=== PATIENT | female | born 1950 | race Caucasian/White ===

== ENCOUNTER 2021-09-30 11:13 | Emergency (ER) | payer MEDICARE, OTHER, SELFPAY ==
[2021-09-30 11:23] VITALS: BP 138/71; PULSE 59; RESP 16; TEMP 36.2; O2SAT 96
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
[2021-09-30 12:54] VITALS: BP 124/70; PULSE 54; RESP 18; TEMP 36.1; O2SAT 98
== END 2021-09-30 12:58 | disposition home or self-care (01) ==
PROVIDERS: Emergency Provider Physician Assistant
DX: S80.12XA Contusion of left lower leg, initial encounter (principal); S01.81XA Laceration without foreign body of other part of head, initial encounter; V89.2XXA Person injured in unspecified motor-vehicle accident, traffic, initial encounter; Z48.02 Encounter for removal of sutures
CPT/HCPCS: 99283; 73590

== ENCOUNTER 2021-12-09 16:09 | Emergency (ER) | payer MEDICARE, OTHER, SELFPAY ==
[2021-12-09] VITALS (11 sets, daily range): BP systolic 123–136; BP diastolic 57–73; PULSE 62–72; RESP 14–24; TEMP 36.5–36.8; O2SAT 92–98
--- NOTE | 2021-12-09 16:16 | ED.GENADUL_ITS ---
Discharge Plan Disposition Patient Disposition: HOME Condition: Stable Discharge Details Clinical Impression: Diverticulitis, Hypokalemia Primary Care Provider: Jeannie,Local ED Provider: Kian Barnes Home Meds and New Rx's Prescriptions: New ciprofloxacin HCl [Cipro] 500 mg tablet 500 mg PO BID Qty: 20 0RF metronidazole 500 mg tablet 500 mg PO QID 10 Days Qty: 40 0RF potassium chloride 20 mEq tablet,ER particles/crystals 20 meq PO DAILY Qty: 7 0RF Continued venlafaxine 150 mg Capsule,Extended Release 24hr 150 mg PO DAILY levothyroxine 125 mcg Tablet 125 mcg PO DAILY triamterene-hydrochlorothiazid 37.5-25 mg Tablet 1 tab PO DAILY rosuvastatin 20 mg Tablet 20 mg PO DAILY lorazepam [Ativan] 0.5 mg Tablet 0.5 mg PO BID PRN gabapentin 100 mg Capsule 100 mg PO TID PRN PRN naproxen 250 mg Tablet 250 mg PO BID PRN Label Comments: 250-500mg depending on how she feels CJ 12/09/21 acetaminophen 500 mg Tablet 1,000 mg PO Q6H PRN ibuprofen 200 mg Tablet 400 mg PO Q6H PRN cyanocobalamin (vitamin B-12) [Vitamin B-12] 500 mcg Tablet 500 mcg PO DAILY vitamin E 268 mg (400 unit) Capsule 268 mg PO DAILY biotin 2,500 mcg Capsule 5,000 mcg PO DAILY Discharge Instructions Instructions: Diverticulitis (ED), Hypokalemia (ED) Additional Instructions: Cipro, Flagyl, potassium as directed. Plenty of fluids to avoid dehydration. You may use [id number] medications such as Imodium for symptomatic control. We also discussed live culture yogurt and probiotics. Please watch for new or worsening symptoms and return to the ER for any concerns. Lastly, please reach out to your primary care provider tomorrow to discuss your ER visit, symptoms, need for outpatient reevaluation. You will need to have your potassium rechecked to be sure you do not need to be on long-term supplementation Medical Decision Making 71-year-old female who is otherwise healthy presents with abdominal pain and diarrhea that began about 5 days ago, worse in the left lower quadrant. She reports mild nausea with one episode of vomiting today. No fever, black tarry stools or bright red blood in her stools. Clinically she appears well, nontoxic, examination most consistent with diverticulitis. Plan is to obtain IV access, give IV fluid, obtain routine screening laboratory values and a CT of her abdomen pelvis with IV contrast. Laboratory values reveal a potassium of 2.5, labs otherwise unremarkable. Plan to obtain EKG and provide both oral and IV potassium supplementation Awaiting CT imaging CT imaging reveals proximal sigmoid diverticulitis, no abscess, perforation or bowel obstruction Discussed CT findings and laboratory work-up with patient. Patient feels well and is requesting discharge. We will give first dose of Cipro and Flagyl now. We also discussed her potassium, will provide short-term supplementation and we discussed the importance of outpatient follow-up through her PCP regarding her diverticulitis and need for potassium recheck as she may require long-term supplementation. Standard discharge and return precautions were provided. Patient understands, is agreeable to this plan, and has no additional questions or concerns upon discharge. This documentation was generated using [employer] system, please disregard any oddities of phrase or misspellings. Medical Records Medical records reviewed: Yes I reviewed the patient's medical records. Imaging Data Radiologic Study: Attestation: I personally reviewed and interpreted this imaging study as follows: Imaging: CT Scan Radiologist's impression: PROCEDURE INFORMATION: Exam: CT Abdomen And Pelvis With Contrast Exam date and time: 12/09/2021 5:38 PM Age: 71 years old Clinical indication: Abdominal pain; Localized; Left lower quadrant (llq); Patient HX: Llq pain TECHNIQUE: Imaging protocol: Computed tomography of the abdomen and pelvis with contrast. COMPARISON: No relevant prior studies available. FINDINGS: Lungs: Lung bases are clear. Pleural spaces: No pleural effusion. Heart: Normal heart size. No pericardial effusion. No coronary artery atherosclerotic calcium visible period Liver: Diffuse mild fatty liver change. Gallbladder and bile ducts: Previous cholecystectomy. Nonspecific biliary dilatation. Mild intrahepatic biliary dilatation. Common hepatic duct is significantly dilated at 1.7 cm period distal common bile duct at the pancreatic head is 12 mm. No obstructing focus. No calculus. Recommend correlation with bilirubin. Pancreas: Mild to moderate pancreatic atrophy. No acute inflammation. Pancreatic duct measuring approximately 3-4 mm. Spleen: The spleen is normal in size, contour and attenuation. Adrenal glands: The adrenal glands are normal in size and contour bilaterally. Kidneys and ureters: The kidneys bilaterally are unremarkable. Normal attenutation. No hydronephrosis. No calculi. Stomach and bowel: Gastric morphology is unremarkable. No edema. No gastric outlet obstruction. Small bowel loops are normal in course and caliber. There is no mucosal edema or bowel wall thickening. No obstructive features. Large bowel is remarkable for proximal sigmoid inflammation and a focally inflamed diverticulum. See series 4, image 66. This is consistent with [id number] proximal sigmoid diverticulitis. No evidence of perforation. No free fluid. No free air. No abscess. Appendix: No evidence of appendicitis. Intraperitoneal space: No free fluid or free air Vasculature: Unremarkable. No abdominal aortic aneurysm. Lymph nodes: Unremarkable. No enlarged lymph nodes. Urinary bladder: Unremarkable as visualized. Reproductive: Uterine atrophy and degenerative uterine fibroids are suggested with calcified lesions in the uterine fundus. No adnexal pathology evident. Bilateral fallopian tube occlusion clips are noted. Bones/joints: Degenerative lumbar spine disease. No acute skeletal pathology. Soft tissues: Unremarkable. IMPRESSION: 1. Proximal sigmoid diverticulitis. No evidence of perforation. No abscess. No mechanical bowel obstruction. 2. Previous cholecystectomy with biliary dilatation noted. No acute obstructing focus. Recommend clinical correlation with serum bilirubin. This could be a post cholecystectomy reservoir effect. 3. Mild fatty liver change. 4. Degenerative lumbar spine disease. 5. Mild to moderate pancreatic atrophy. 6. Uterine atrophy and calcified degenerative uterine fibroids. Thank you for allowing us to participate in the care of your patient. Lab Data Lab results reviewed: Yes I reviewed the patient's lab results. Labs: Laboratory Tests Range/Units 12/09/21 12/09/21 12/09/21 17:05 17:05 17:35 WBC (4.4-10.8) 10^3/uL 6.64 RBC (3.93-5.22) 10^6/uL 4.37 Hgb (11.2-15.7) g/dL 13.7 Hct (36.0-46.0) % 40.2 MCV (80-95) fL 92 MCH (27.0-33.0) pg 31.4 MCHC (32.0-36.0) % 34.1 RDW (11.7-14.6) % 10.9 L Plt Count (130-400) 10^3/uL 241 MPV (8.0-11.0) fL 9.0 Immature Gran % 0.3 Neutrophils % 66.4 Lymphocytes % 20.5 Monocytes % 11.3 Eosinophils % 1.2 Basophils % 0.3 Nucleated RBC % (0.0-0.3) % 0.0 Absolute Neutrophils (1.2-6.7) 10^3/uL 4.41 Absolute Lymphocytes (1.2-3.4) 10^3/uL 1.36 Absolute Monocytes (0.1-0.8) 10^3/uL 0.75 Absolute Eosinophils (0.0-0.7) 10^3/uL 0.08 Absolute Basophils (0.0-0.2) 10^3/uL 0.02 Sodium (136-145) mmol/L 137 Potassium (3.5-5.1) mmol/L 2.5 L* Chloride (98-107) mmol/L 99 Carbon Dioxide (21.0-32.0) mmol/L 30.7 Anion Gap (3-11) mmol/L 7.3 BUN (7-18) mg/dL 9 Creatinine (0.55-1.02) mg/dL 0.9 Est GFR (CKD-EPI 2020) (mL/min/1.73m2) 69.20 Glucose (74-106) mg/dL 88 Calcium (8.5-10.1) mg/dL 9.4 Total Bilirubin (0.2-1.0) mg/dL 0.5 AST (15-37) U/L 23 ALT (14-59) U/L 30 Alkaline Phosphatase (46-116) U/L 101 Total Protein (6.4-8.2) g/dL 7.4 Albumin (3.4-5.0) g/dL 3.6 Lipase (73-393) U/L 45 Urine Color (Yellow) Yellow Urine Clarity (Clear) Clear Urine pH (5-8) 6.0 Ur Specific [place] (1.005-1.025) 1.025 Urine Protein (Negative) mg/dL Trace H Urine Ketones (Negative) mg/dL Trace H Urine Blood (Negative) Small H Urine Nitrite (Negative) Negative Urine Bilirubin (Negative) Small H Urine Urobilinogen (Up TO 0.2) EU/dL 0.2 Ur Leukocyte Esterase (Negative) Negative Urine RBC (0-2) HPF 3-5 H Urine WBC (0-5) HPF Negative Ur Epithelial Cells (Negative) HPF Few Urine Crystals (Negative) HPF Negative Urine Bacteria (Negative) HPF Negative Urine Casts (Negative) LPF 0-2 Fine Granular Urine Mucus (Negative) Trace Ur Culture Indicated? No Urine Glucose (Negative) mg/dL Negative Stl C.difficile Tox PCR (Negative) Range/Units 12/09/21 17:35 WBC (4.4-10.8) 10^3/uL RBC (3.93-5.22) 10^6/uL Hgb (11.2-15.7) g/dL Hct (36.0-46.0) % MCV (80-95) fL MCH (27.0-33.0) pg MCHC (32.0-36.0) % RDW (11.7-14.6) % Plt Count (130-400) 10^3/uL MPV (8.0-11.0) fL Immature Gran % Neutrophils % Lymphocytes % Monocytes % Eosinophils % Basophils % Nucleated RBC % (0.0-0.3) % Absolute Neutrophils (1.2-6.7) 10^3/uL Absolute Lymphocytes (1.2-3.4) 10^3/uL Absolute Monocytes (0.1-0.8) 10^3/uL Absolute Eosinophils (0.0-0.7) 10^3/uL Absolute Basophils (0.0-0.2) 10^3/uL Sodium (136-145) mmol/L Potassium (3.5-5.1) mmol/L Chloride (98-107) mmol/L Carbon Dioxide (21.0-32.0) mmol/L Anion Gap (3-11) mmol/L BUN (7-18) mg/dL Creatinine (0.55-1.02) mg/dL Est GFR (CKD-EPI 2020) (mL/min/1.73m2) Glucose (74-106) mg/dL Calcium (8.5-10.1) mg/dL Total Bilirubin (0.2-1.0) mg/dL AST (15-37) U/L ALT (14-59) U/L Alkaline Phosphatase (46-116) U/L Total Protein (6.4-8.2) g/dL Albumin (3.4-5.0) g/dL Lipase (73-393) U/L Urine Color (Yellow) Urine Clarity (Clear) Urine pH (5-8) Ur Specific [place] (1.005-1.025) Urine Protein (Negative) mg/dL Urine Ketones (Negative) mg/dL Urine Blood (Negative) Urine Nitrite (Negative) Urine Bilirubin (Negative) Urine Urobilinogen (Up TO 0.2) EU/dL Ur Leukocyte Esterase (Negative) Urine RBC (0-2) HPF Urine WBC (0-5) HPF Ur Epithelial Cells (Negative) HPF Urine Crystals (Negative) HPF Urine Bacteria (Negative) HPF Urine Casts (Negative) LPF Urine Mucus (Negative) Ur Culture Indicated? Urine Glucose (Negative) mg/dL Stl C.difficile Tox PCR (Negative) Negative ECG Data Attestation: I personally reviewed and interpreted this ECG (s) as follows: Interpretation: Sinus rhythm, ventricular rate of 62. Nonspecific intraventricular conduction delay, no STEMI HPI General Mode of arrival: ambulatory . Date/Time Provider Initiated Documentation: 12/09/21 16:16 . Limitations to Documentation: no limitations . Information obtained by: patient . History of Present Illness 71 year old F presents to the emergency department with the chief complaint of Abdominal pain, diarrhea, described as moderate, with intensity rated at 4. Quality is described as aching, and is localized to the abdomen and left. Patient reports no radiation. Patient started experiencing this day(s) (5) and it has been constant. No relieving factors improve symptom(s), No exacerbating factors reported . Patient notes nausea/vomiting (Vomiting x1). Patient did receive the following treatments prior to arrival, none Related Data Home Medications Medication Instructions Recorded Confirmed levothyroxine 125 mcg tablet 125 mcg PO DAILY 09/30/21 12/09/21 lorazepam 0.5 mg tablet (Ativan) 0.5 mg PO BID PRN 09/30/21 12/09/21 rosuvastatin 20 mg tablet 20 mg PO DAILY 09/30/21 12/09/21 triamterene 37.5 1 tab PO DAILY 09/30/21 12/09/21 mg-hydrochlorothiazide 25 mg tablet venlafaxine 150 mg 150 mg PO DAILY 09/30/21 12/09/21 capsule,extended release 24 hr acetaminophen 500 mg tablet 1,000 mg PO Q6H PRN 12/09/21 12/09/21 biotin 2,500 mcg capsule 5,000 mcg PO DAILY 12/09/21 12/09/21 ciprofloxacin HCl 500 mg tablet 500 mg PO BID #20 tabs 12/09/21 (Cipro) cyanocobalamin (vitamin B-12) 500 500 mcg PO DAILY 12/09/21 12/09/21 mcg tablet (Vitamin B-12) gabapentin 100 mg capsule 100 mg PO TID PRN PRN 12/09/21 12/09/21 ibuprofen 200 mg tablet 400 mg PO Q6H PRN 12/09/21 12/09/21 metronidazole 500 mg tablet 500 mg PO QID 10 days #40 tabs 12/09/21 naproxen 250 mg tablet 250 mg PO BID PRN 12/09/21 12/09/21 potassium chloride 20 mEq 20 meq PO DAILY #7 tabs 12/09/21 tablet,extended release(part/cryst) vitamin E 268 mg (400 unit) capsule 268 mg PO DAILY 12/09/21 12/09/21 Previous Rx's Medication Instructions Recorded ciprofloxacin HCl 500 mg tablet 500 mg PO BID #20 tabs 12/09/21 (Cipro) metronidazole 500 mg tablet 500 mg PO QID 10 days #40 tabs 12/09/21 potassium chloride 20 mEq 20 meq PO DAILY #7 tabs 12/09/21 tablet,extended release(part/cryst) Allergies Allergy/AdvReac Type Severity Reaction Status Date / Time Sulfa (Sulfonamide Allergy Unverified 12/09/21 17:42 Antibiotics) General DEV: 3 Review of Systems Constitutional Constitutional: Denies fever(s) and Denies weakness Cardiovascular Cardiovascular: Denies chest pain and Denies dyspnea Respiratory Respiratory: Denies cough and Denies dyspnea Gastrointestinal Gastrointestinal: Reports abdominal pain, Denies melena, Denies hematochezia, Reports diarrhea, Reports nausea and Reports hematemesis Genitourinary Genitourinary: Denies dysuria Musculoskeletal Musculoskeletal: Denies back pain Integumentary/Breasts Skin/Breast: Denies rash Neurologic Neurologic: Denies weakness Hematologic/Lymphatic Hematologic/Lymphatic: Denies easy bleeding and Denies easy bruising PFSH All Active Problems (Updated 12/09/21 @ 19:39 by TRACY Painter) Diverticulitis (Chronic) Hypokalemia (Acute) Social History Smoking/Tobacco Use Status: Never Smoking risk assessment performed?: Yes Alcohol Intake: former Drug use: Never 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 Do you feel safe at home: Yes Do you feel safe in your relationship?: Yes Exam Const General: cooperative, healthy appearing, comfortable and no acute distress Orientation: alert, awake and oriented x3 HENMT Head: normal to inspection, normocephalic and atraumatic Face and sinus: normal facial exam Mouth: moist mucous membranes Eyes General: appearance normal, both eyes and all related structures Conjunctivae: conjunctivae normal Neck Neck: normal visual inspection, full ROM, no meningeal signs, trachea midline and supple Resp Effort & Inspection: normal respiratory effort and able to speak in complete sentences Auscultation: clear to auscultation bilaterally Cardio Rate: regular rate Rhythm: regular rhythm GI Inspection: normal to inspection and obesity Palpation: soft, not firm, no guarding, no pulsatile masses and tender in the LLQ; not at McBurney's point, Esquivel's sign negative and with no rebound tenderness Auscultation: normal bowel sounds Back/Spine/Pelvis Back: no CVA tenderness and No back tenderness Skin General skin exam: no rashes or lesions noted Neuro General: patient alert, patient awake, moves all extremities and no focal motor deficits Cognition: normal cognition Speech: speech normal Gait: normal gait Sensory Exam: no sensory deficits noted Extrem General: normal to inspection, full ROM and capillary refill normal Psych Appearance: grossly normal Mental Status: mental status grossly normal
--- NOTE | 2021-12-09 16:30 | DI.CT_ITS ---
Exam(s) CT ABDOMEN PELVIS W EXAM: CT ABDOMEN PELVIS W CLINICAL HISTORY: LLQ pain. TECHNIQUE: Imaging Protocol: Axial computed tomography images with coronal and sagittal reformatted images were created and reviewed CONTRAST MATERIAL: Intravenous: Omnipaque 350 Contrast volume:100 ml Oral: no COMPARISON: No exams were available for comparison FINDINGS: ABDOMEN: Lung Bases: Normal where visualized. Liver: Normal density. No measurable mass. Gallbladder and biliary tract: Status post cholecystectomy. intrahepatic and extrahepatic biliary di latation. No obstructing stone or visible mass. Pancreas: Mild atrophy. Normal density, no abnormal calcifications or inflammatory process. Spleen: Normal. Kidneys: Normal size, contour and axis. No radiodense stones or obstructive uropathy. No masses seen. Adrenal glands: No masses seen. Abdominal Aorta: Abdominal portion non-dilated. Soft tissues: Small fatty containing umbilical hernia. PELVIS: Bladder: No gross wall thickening. No calculi.No focal mass. Bowel: Diverticulosis descending and sigmoid colon. Focal diverticulitis at the junction of the desc ending and sigmoid. No evidence of abscess or perforation. No obstruction . Appendix normal. Peritoneal cavity: No ascites, or focal collection.. Bones: Degenerative changes.. Reproductive organs: Calcified fibroids. Tubal ligation clips. Lymph nodes: Unremarkable. Impression: Diverticulitis at junction descending and sigmoid colon. No perforation. Biliary dilatation likely secondary to post cholecystectomy reservoir effect. RADIATION DOSE DELIVERED: 1,155.77mGy.cm Total DLP DATA REPOSITORY: All CT scans at this facility are submitted to the National Radiology Data Registry (NRDR) Dose Index Registry (DIR) with the [employer] ([employer]). RADIATION OPTIMIZATION: All CT scans at this facility use at least one of these dose optimization te chniques: automated exposure control; mA and/or kV adjustment per patient size (includes targeted exa ms where dose is matched to clinical indication); or iterative reconstruction.
[2021-12-09 17:11] LABS: Abs Immature Grans 0.02 10^3/uL (0.0-0.06); Absolute Basophil Count 0.02 10^3/uL (0.0-0.2); Absolute Eosinophil Count 0.08 10^3/uL (0.0-0.7); Absolute Lymphocyte Count 1.36 10^3/uL (1.2-3.4); Absolute Monocyte Count 0.75 10^3/uL (0.1-0.8); Absolute Neutrophil Count 4.41 10^3/uL (1.2-6.7); Basophils % 0.3; Eosinophils % 1.2; HCT 40.2 % (36.0-46.0); HGB 13.7 g/dL (11.2-15.7); Immature Grans % 0.3; Lymphocytes % 20.5; MCH 31.4 pg (27.0-33.0); MCHC 34.1 % (32.0-36.0); MCV 92 fL (80-95); Monocytes % 11.3; Neutrophils % 66.4; Platelet Count 241 10^3/uL (130-400); RBC 4.37 10^6/uL (3.93-5.22); RDW 10.9 % (11.7-14.6); RDW-SD 37.4 fL; WBC 6.64 10^3/uL (4.4-10.8)
[2021-12-09 17:25] LABS: ALT 30 U/L (14-59); AST 23 U/L (15-37); Albumin 3.6 g/dL (3.4-5.0); Alkaline Phosphatase 101 U/L (46-116); Anion Gap 7.3 mmol/L (3-11); BUN 9 mg/dL (7-18); Bilirubin, Total 0.5 mg/dL (0.2-1.0); CO2 30.7 mmol/L (21.0-32.0); CREATININE 0.9 mg/dL (0.55-1.02); Calcium 9.4 mg/dL (8.5-10.1); Chloride 99 mmol/L (98-107); Glucose 88 mg/dL (74-106); Lipase 45 U/L (73-393); Sodium 137 mmol/L (136-145); Total Protein 7.4 g/dL (6.4-8.2)
[2021-12-09 17:27] LABS: Potassium 2.5 mmol/L (3.5-5.1)
--- NOTE | 2021-12-09 17:30 | RT.EKG_ITS ---
APPROVED REPORT Exam: Resting ECG Reason for Exam: hypokalemia Patient Location: E HR:62 bpm ECG Measurements Heart Rate 62 AXIS OR 188 P 47 QRSd 123 QRS 26 QT 431 T 72 QTc 437 Conclusion Sinus rhythm...normal P axis, V-rate 60- 99 Nonspecific intraventricular conduction delay...QRSd >115mS, not LBBB/RBBB
[2021-12-09] MEDS: Omnipaque 350 MG/ML 100 ML BTL IJ (17:37)
[2021-12-09 17:44] LABS: Bilirubin Small (Negative); Blood Small (Negative); Clarity Clear (Clear); Glucose Negative (Negative); Ketones Trace mg/dL (Negative); Leukocyte Esterase Negative (Negative); Nitrite Negative (Negative); Specific Gravity 1.025 (1.005-1.025); Urobilinogen 0.2 EU/dL (Up TO 0.2)
[2021-12-09 17:51] LABS: Bacteria Negative HPF (Negative); C & S Indicated? No; Casts 0-2 Fine Granular LPF (Negative); Crystals Negative HPF (Negative); Epithelial Cells Few HPF (Negative); Mucus Trace (Negative); WBC Negative HPF (0-5)
[2021-12-09] MEDS: Potassium Chloride 20 MEQ TABCR 40 MEQ PO (18:16)
[2021-12-09] MEDS: POTASSIUM CHLORIDE 10 MEQ/100 ML BAG 100 MEQ IVPB (18:16)
[2021-12-09 18:27] LABS: C Diff PCR Negative (Negative)
--- NOTE | 2021-12-09 19:02 | DI.VRAD_ITS ---
PROCEDURE INFORMATION: Exam: CT Abdomen And Pelvis With Contrast Exam date and time: 12/09/2021 5:38 PM Age: 71 years old Clinical indication: Abdominal pain; Localized; Left lower quadrant (llq); Patient HX: Llq pain TECHNIQUE: Imaging protocol: Computed tomography of the abdomen and pelvis with contrast. COMPARISON: No relevant prior studies available. FINDINGS: Lungs: Lung bases are clear. Pleural spaces: No pleural effusion. Heart: Normal heart size. No pericardial effusion. No coronary artery atherosclerotic calcium visible period Liver: Diffuse mild fatty liver change. Gallbladder and bile ducts: Previous cholecystectomy. Nonspecific biliary dilatation. Mild intrahepatic biliary dilatation. Common hepatic duct is significantly dilated at 1.7 cm period distal common bile duct at the pancreatic head is 12 mm. No obstructing focus. No calculus. Recommend correlation with bilirubin. Pancreas: Mild to moderate pancreatic atrophy. No acute inflammation. Pancreatic duct measuring approximately 3-4 mm. Spleen: The spleen is normal in size, contour and attenuation. Adrenal glands: The adrenal glands are normal in size and contour bilaterally. Kidneys and ureters: The kidneys bilaterally are unremarkable. Normal attenutation. No hydronephrosis. No calculi. Stomach and bowel: Gastric morphology is unremarkable. No edema. No gastric outlet obstruction. Small bowel loops are normal in course and caliber. There is no mucosal edema or bowel wall thickening. No obstructive features. Large bowel is remarkable for proximal sigmoid inflammation and a focally inflamed diverticulum. See series 4, image 66. This is consistent with [id number] proximal sigmoid diverticulitis. No evidence of perforation. No free fluid. No free air. No abscess. Appendix: No evidence of appendicitis. Intraperitoneal space: No free fluid or free air Vasculature: Unremarkable. No abdominal aortic aneurysm. Lymph nodes: Unremarkable. No enlarged lymph nodes. Urinary bladder: Unremarkable as visualized. Reproductive: Uterine atrophy and degenerative uterine fibroids are suggested with calcified lesions in the uterine fundus. No adnexal pathology evident. Bilateral fallopian tube occlusion clips are noted. Bones/joints: Degenerative lumbar spine disease. No acute skeletal pathology. Soft tissues: Unremarkable. IMPRESSION: 1. Proximal sigmoid diverticulitis. No evidence of perforation. No abscess. No mechanical bowel obstruction. 2. Previous cholecystectomy with biliary dilatation noted. No acute obstructing focus. Recommend clinical correlation with serum bilirubin. This could be a post cholecystectomy reservoir effect. 3. Mild fatty liver change. 4. Degenerative lumbar spine disease. 5. Mild to moderate pancreatic atrophy. 6. Uterine atrophy and calcified degenerative uterine fibroids. Dictated and Authenticated by: Ty Duenas MD. Ordering:PAWEL Langston MD
--- NOTE | 2021-12-09 19:06 | NUR.NOTE ---
Nursing Note: Pt has been feeling ok. Just in last few minutes is feeling cold, feverish and Nauseous. Oncoming RN is going to request some zofran and possibly tylenol. Pt's IV potassium is still running. Rate had to be decreased due to burning of arm.
[2021-12-09] MEDS: Ciprofloxacin 500 MG TAB PO (19:32)
[2021-12-09] MEDS: metroNIDAZOLE 500 MG TAB PO (19:32)
[2021-12-10 22:58] LABS: Campylobacter PCR Negative (Negative); Salmonella PCR Negative (Negative); Shiga Toxin PCR Negative (Negative); Shigella/Enteroinvasive Ecoli Negative (Negative)
== END 2021-12-09 19:57 | disposition home or self-care (01) ==
PROVIDERS: Emergency Provider Physician Assistant
DX: K57.30 Diverticulosis of large intestine without perforation or abscess without bleeding (principal); E87.6 Hypokalemia
CPT/HCPCS: 36415; 80053; 83690; 87493; 87505; 93005; 96365; 99285; 74177; 81003; 81015; 85025; 93010; 99284; J3480; J3490